=== PATIENT | female | born 1980 | race Caucasian/White ===

== ENCOUNTER 2023-04-14 10:44 | Inpatient (IN) | payer BC ==
[2023-04-14] MEDS ORDERED: Ephedrine Sulfate 50 MG/ML IV PRN (12:18)
[2023-04-14] MEDS ORDERED: Zofran 4 MG/2 ML VIAL IV PRN (12:18)
[2023-04-14] MEDS ORDERED: XYLOCAINE 1% HCL 20 ML MDV IJ PRN (12:18)
[2023-04-14] MEDS ORDERED: FENTANYL 2 MCG-BUPIV 0.125%-NS 250 ML Epidur 250 ML EPIDURAL SCH (12:30)
[2023-04-14] MEDS ORDERED: PITOCIN 30 UNITS/ LR 500 ML 30 UNITS/500 ML PLAST..BAG IV SCH (12:30)
[2023-04-14 12:42] LABS: Absolute Neutrophil Ct (ANC) 13.98 x10^3/uL (1.4-6.9); BASOPHIL % 0.2 % (0.0-0.4); Basophil (Absolute #) 0.03 x10^3/uL (0-0.4); Eosinophil % 0.1 % (0.00-5.0); Eosinophil (Absolute #) 0.02 x10^3/uL (0-0.5); Hematocrit 38.7 % (35-47); Hemoglobin 12.8 g/dL (12.0-16.0); IMMATURE GRAN # 0.07 x10^3u/L (0.00-0.03); IMMATURE GRAN % 0.4 % (0.00-0.4); Lymphocytes % 5.7 % (24.0-44.0); Mean Cell Volume 93.7 fL (78-100); Mean Corpuscular Hgb Concent. 33.1 g/dL (32-36); Mean Platelet Volume 9.6 fL (7.5-11.0); Monocyte (Absolute #) 0.68 x10^3/uL (0.0-1.3); Monocytes % 4.3 % (0.0-12.0); Neutrophil % 89.3 % (36.0-66.0); Platelet Count 246 x10^3/uL (150-450); Red Blood Count 4.13 x10^6/uL (4.1-5.4); Red Cell Distribution Width 13.9 % (11.5-14.0); White Blood Count 15.7 x10^3/uL (4.0-10.5)
[2023-04-14] MEDS: Lactated Ringers 1,000 ML IV ONE ×2 (12:56→14:38)
[2023-04-14 13:00] LABS: Amphetamine,Urine NEGATIVE (NEGATIVE); Barbiturate,Urine NEGATIVE (NEGATIVE); Benzodiazepine,Urine NEGATIVE (NEGATIVE); Cocaine,Urine NEGATIVE (NEGATIVE); Methadone,Urine NEGATIVE (NEGATIVE); Opiate,Urine NEGATIVE (NEGATIVE); PCP,Urine NEGATIVE (NEGATIVE); THC,Urine NEGATIVE (NEGATIVE)
[2023-04-14 13:18] LABS: ABO TYPING O; Antibody Screen NEGATIVE (NEGATIVE); RH TYPING POSITIVE
[2023-04-14] MEDS: Lactated Ringers 1,000 ML IV SCH ×2 (14:38→22:42)
[2023-04-15] MEDS ORDERED: LANSINOH 40 GM TOP PRN (02:37)
[2023-04-15] MEDS ORDERED: TUCKS TP PRN (02:37)
[2023-04-15] MEDS ORDERED: Dermoplast Spray TP PRN (02:37)
[2023-04-15] MEDS ORDERED: CORTISONE 1% CREAM TP PRN (02:37)
[2023-04-15 04:51] LABS: Absolute Neutrophil Ct (ANC) 16.45 x10^3/uL (1.4-6.9); BASOPHIL % 0.1 % (0.0-0.4); Basophil (Absolute #) 0.02 x10^3/uL (0-0.4); Eosinophil (Absolute #) 0 x10^3/uL (0-0.5); Hemoglobin 10.9 g/dL (12.0-16.0); IMMATURE GRAN # 0.09 x10^3u/L (0.00-0.03); IMMATURE GRAN % 0.5 % (0.00-0.4); Lymphocyte (Absolute #) 0.78 x10^3/uL (1.0-4.6); Lymphocytes % 4.3 % (24.0-44.0); Mean Cell Volume 93.5 fL (78-100); Mean Corpuscular Hemoglobin 30.9 pg (26-32); Mean Platelet Volume 9.8 fL (7.5-11.0); Monocyte (Absolute #) 0.88 x10^3/uL (0.0-1.3); Monocytes % 4.8 % (0.0-12.0); Neutrophil % 90.3 % (36.0-66.0); Platelet Count 222 x10^3/uL (150-450); Red Blood Count 3.53 x10^6/uL (4.1-5.4); Red Cell Distribution Width 14.3 % (11.5-14.0); White Blood Count 18.2 x10^3/uL (4.0-10.5)
[2023-04-15] MEDS: TYLENOL EXTRA STRENGTH 500 MG PO PRN (06:37)
[2023-04-15] MEDS: Docusate Sodium 100 MG PO SCH ×2 (10:41→21:15)
[2023-04-15] MEDS: FERREX 150 PO SCH (10:41)
[2023-04-15] MEDS ORDERED: Adacel Vial IM ONE (11:00)
[2023-04-15] MEDS: MOTRIN 400 MG PO PRN ×2 (14:33→21:15)
[2023-04-16] MEDS: TYLENOL EXTRA STRENGTH 500 MG PO PRN ×2 (06:19→20:38)
--- NOTE | 2023-04-16 07:19 | PCM.NOTE ---
Date and Time: 04/16/23717 Subjective Assessment: ppd 1 sp pt resting in bed and doing well able to ambulate and tolerate diet. vss afebrile abd; soft uterus; firm lochia; mild hgb; 10 a/p sp ppd1 anticipate discharge home tomorrow should fu in office in 3 wks OBJECTIVE DATA Vital Signs: Vital Signs - 24 hr Temp Pulse Resp BP Pulse Ox 04/16/23 02:00 98.4 F 89 17 100/63 97 04/15/23 20:30 98.4 F 93 H 17 128/60 97 04/15/23 14:35 97.9 F 105 H 16 103/69 96 04/15/23 08:13 98.2 F 74 16 112/59 97 Pain Assessment - Last Documented Pain Intensity [Medial] 0 Pain Intensity 2 Pain Scale Used 0-10 Pain Scale Intake and Output: Intake & Output 04/13/23 04/14/23 04/15/23 04/16/23 11:59 11:59 11:59 11:59 Intake Total 1000 2080 Output Total 700 Balance 300 2080 Weight 66.678 kg Assessment/Plan (1) Vaginal delivery Current Visit: Yes Status: Acute Code(s): O80 - ENCOUNTER FOR FULL-TERM UNCOMPLICATED DELIVERY
--- NOTE | 2023-04-16 07:22 | PCM.DS ---
Discharge Summary Date of Admission: 04/14/23 10:44 Admitting Physician: MYAH MARTINEZ Consults: Consults on Case 04/14/23 12:19 Notify Anesthesia Provider PRN Primary Care Provider: STEPHEN BERG Allergies Allergies No Known Drug Allergies Allergy (Unverified 04/14/23 12:55) Hospital Summary - Hospital Course Hospital Course: pt admitted on april 14 at 37 3/7 wks gestation with spontaneous rupture of membrane and was subsequently started on pitocin and received epidural and subsequently delivered live baby girl via without complicaiton on april 15. during period was stable able to ambulate and tolerate diet and had a stable hgb level at 10. pt at this time stable for discharge on april 17 and was advised to fu in office in 3 wks for care. all questions answered to her satisfaction. - Vitals & Intake/Output Vital Signs: Vital Signs Temperature 98.4 F 04/16/23 02:00 Pulse Rate 89 04/16/23 02:00 Respiratory Rate 17 04/16/23 02:00 Blood Pressure 100/63 04/16/23 02:00 O2 Sat by Pulse Oximetry 97 04/16/23 02:00 Intake & Output: Intake & Output 04/13/23 04/14/23 04/15/23 04/16/23 11:59 11:59 11:59 11:59 Intake Total 1000 2080 Output Total 700 Balance 300 2080 Weight 66.678 kg - Lab Result Diagrams: 04/15/23 04:40 Micro Results-Entire Visit: Microbiology 04/14/23 00:50 Urine Culture - Final Catherized NO GROWTH Final Diagnosis/Problem List - Final Discharge Diagnosis/Problem (1) Vaginal delivery Current Visit: Yes Status: Acute Code(s): O80 - ENCOUNTER FOR FULL-TERM UNCOMPLICATED DELIVERY - Discharge Disposition: Home, Self-Care Condition: Stable Prescriptions: No Action Vit No.179/Iron/Folic [ Tablet] 1 each PO DAILY Simethicone [Gas-X] 125 mg PO QID PRN Docusate Sodium [Colace] 100 mg PO BID PRN Calcium Carbonate [Tums] 200 mg PO DAILY PRN PRN PRN Reason: Gas Or Belching Acyclovir 200 mg Cap [Acyclovir] 400 mg PO DAILY Follow up with: STEPHEN BERG MD [Primary Care Provider] - LOUIS GONZALES DO [ACTIVE STAFF] -
[2023-04-16 07:49] LABS: Hematocrit 29.5 % (35-47); Hemoglobin 9.6 g/dL (12.0-16.0); Mean Cell Volume 95.5 fL (78-100); Mean Corpuscular Hemoglobin 31.1 pg (26-32); Mean Corpuscular Hgb Concent. 32.5 g/dL (32-36); Mean Platelet Volume 9.5 fL (7.5-11.0); Platelet Count 201 x10^3/uL (150-450); Red Blood Count 3.09 x10^6/uL (4.1-5.4); Red Cell Distribution Width 14.4 % (11.5-14.0); White Blood Count 10.3 x10^3/uL (4.0-10.5)
[2023-04-16] MEDS: FERREX 150 PO SCH (13:11)
[2023-04-16] MEDS: Docusate Sodium 100 MG PO SCH (13:15)
[2023-04-16] MEDS: MOTRIN 400 MG PO PRN (13:16)
[2023-04-16 20:54] VITALS: RESP 16
[2023-04-17] MEDS: Docusate Sodium 100 MG PO SCH ×2 (01:50→10:09)
[2023-04-17] MEDS: MOTRIN 400 MG PO PRN (03:11)
[2023-04-17 04:57] VITALS: BP 119/79; PULSE 79; TEMP 98.6; O2SAT 99
[2023-04-17] MEDS: TYLENOL EXTRA STRENGTH 500 MG PO PRN (10:09)
== END 2023-04-17 15:15 | disposition home or self-care (01) | DRG 807 ==
LOC: OB 10:44
PROVIDERS: ADMIT Family Medicine; ATTEND Family Medicine
PROC: 10E0XZZ Delivery of Products of Conception, External Approach (ICD-10-PCS; principal; 2023-04-14)
PROC: 0KQM0ZZ Repair Perineum Muscle, Open Approach (ICD-10-PCS; 2023-04-14)
DX: O70.1 Second degree perineal laceration during delivery (principal); Z37.0 Single live birth; Z3A.37 37 weeks gestation of pregnancy; Z20.828 Contact with and (suspected) exposure to other viral communicable diseases
CPT/HCPCS: 36415; 59409; 80307; 84112; 85025; 85027; 86850; 86900; 86901; 87086; 90471; 90715; J2405; J2590; A9270-GY

== ENCOUNTER 2024-09-19 14:01 | Emergency (ER) | payer BC ==
[2024-09-19 15:27] VITALS: TEMP 97.5
[2024-09-19] MEDS ORDERED: TYLENOL 325 MG ONE (15:32)
--- NOTE | 2024-09-19 15:32 | ERPHSYRPT ---
- History of Present Illness Time Seen by Provider: 09/19/24 15:32 Source: patient Exam Limitations: no limitations Patient Subjective Stated Complaint: Pt states "I Slipped on my deck and fell backwards and hit the back of my head and my head, neck and back hurt." Triage Nursing Assessment: Pt presented alert and oriented X 3, skin pwd pt ambulates with an upright steady gait, able to speak in clear full sentences. PT resting comfortably on the bed. a pediatric c collar was placed on pt to remind her not to move her head. Physician History: The patient presents with head and body pain after a fall. The patient experienced a fall while taking their dog outside, slipping on the fourth step and landing on their back. The fall was described as a backward motion, and they did not lose consciousness, although they lay on the ground momentarily before getting up. Since the fall, they have experienced pain in their head, eyes, fingers, and thumbs, which began immediately after the incident. They have only managed four hours of sleep since the fall and have taken Tylenol for pain relief. They have a [id number] child, which may impact their ability to rest and recover fully. No loss of consciousness during the fall. No vomiting, weakness on one side, or trouble with speech since the incident. Occurred: just prior to arrival Reason for Fall: slipped Injuries/Pain Location: head, neck, back, upper Loss of Consciousness: no loss of consciousness Quality: throbbing Severity of Pain-Max: moderate Severity of Pain-Current: moderate Modifying Factors: Improves With: immobilization. Worsens With: movement Associated Symptoms (Fall): back pain, headache, nausea, neck pain, No extremity injury, No shortness of breath, No slurred speech, No vomiting Allergies/Adverse Reactions: No Known Drug Allergies Allergy (Unverified 04/14/23 12:55) Home Medications: Acyclovir 200 mg Cap [Acyclovir] 400 mg PO DAILY 04/14/23 [History] Hx Tetanus, Diphtheria Vaccination/Date Given: No Hx Influenza Vaccination/Date Given: No Hx Pneumococcal Vaccination/Date Given: No Immunizations Up to Date: No Travel Risk - International Travel Have you traveled outside of the country in past 3 weeks: No - Emerging Infectious Disease Are you exhibiting symptoms associated with any current EIDs: No - Review of Systems All Other Systems: Reviewed and Negative - Past Medical History Pertinent Past Medical History: No Other Medical History: Hx genital herpes - currently on acyclovir - Past Surgical History Past Surgical History: Yes Other Surgical History: hernia surgery at 2 months old. HV - Female History Hx Last Menstrual Period: 09/12/2024 Hx Now: No - Social History Smoking Status: Never smoker Exposure to second hand smoke: Yes Drug Use: none - Social Determinants of Health Will the patient participate in the screening: Declined to provide - Nursing Vital Signs Nursing Vital Signs: Initial Vital Signs Temperature 97.5 F 09/19/24 15:20 Pulse Rate 66 09/19/24 15:20 Respiratory Rate 20 09/19/24 15:20 Blood Pressure 119/81 09/19/24 15:20 O2 Sat by Pulse Oximetry 100 09/19/24 15:20 Pain Scale Pain Intensity 0 - Obed Coma Score Best Eye Response ([place]): (4) open spontaneously Best Verbal Response ([place]): (5) oriented Best Motor Response ([place]bed): (6) obeys commands [place] Total: 15 - Physical Exam General Appearance: no apparent distress Head Injury: no evidence of injury, tenderness Eye Exam: PERRL/EOMI, eyes nml inspection ENT Exam: airway nml, nml ext.inspection Neck Exam: supple, normal alignment, limited range of motion, muscle spasm, paraspinous muscle tender, No focal neuro deficit Respiratory/Chest Exam: No respiratory distress Back Exam: normal inspection, muscle spasm, No vertebral tenderness Neurologic Exam: alert, oriented x 3, cooperative, wool sacker II-XII nml as tested, normal mood/affect, nml cerebellar function, nml station & gait Skin Exam: normal color, warm, dry, No rash SpO2 Interpretation: normal SpO2: 100 O2 Delivery: Room Air - CT Exams Head CT Interpretation: Negative, Tele-radiologist Report Cervical Spine CT Interpretation: Negative, Tele-radiologist Report Thoracic Spine CT Interpretation: Negative, Tele-radiologist Report Ordered Tests: Active Orders 24 hr Category Date Time Status CERVICAL SPINE WO CONTRAST [CT] Stat Exams 09/19/24 15:30 Completed HEAD WITHOUT CONTRAST [CT] Stat Exams 09/19/24 15:30 Completed THORACIC SPINE W/O CONTRAST [CT] Stat Exams 09/19/24 15:30 Completed Medication Summary Discontinued Medications Generic Name Dose Route Start Last Admin Trade Name Freq PRN Reason Stop Dose Admin Acetaminophen 975 mg 09/19/24 15:31 09/19/24 15:33 Acetaminophen 325 Mg Tablet PO 09/19/24 15:32 975 mg STAT STA Administration Acetaminophen Confirm 09/19/24 15:32 Acetaminophen 325 Mg Tablet Administered 09/19/24 15:33 Dose 975 mg .ROUTE .STK-MED ONE - Progress Progress: improved Progress Note: The patient presents after a same level fall without LOC or reported head injury. The history of the fall indicates it was mechanical and not due to syncope/pre-syncope and there were no preceding symptoms. The patient is not on any blood thinners. It does seem likely there is a possibility of head, cspine or tspine injury so CTs will also be ordered. If necessary, additional testing, medication will be ordered. CT neg for acute injury, return precautions given. Recommend Tylenol only for 2 days. Counseled pt/family regarding: diagnosis, need for follow-up, rad results Medical Desision Making - Diagnostic Testing Diagnostic test were ordered, analyzed, and reviewed by me: Yes Radiological Interpretation: Reviewed by me, Teleradiologist Report - Risk of complications Low Risk: Low risk of morbidity from additional dx testing or treatment - Departure Departure Disposition: Home Clinical Impression: Fall, Post-traumatic headache, Neck pain Condition: Good Critical Care Time: No Referrals: STEPHEN BERG MD [Primary Care Provider] - Follow up/PCP as directed Instructions: Contusion (DC), Preventing falls in adults Forms: Work/School Release Form
[2024-09-19] MEDS: TYLENOL 325 MG PO STA (15:33)
[2024-09-19 16:25] VITALS: RESP 18
--- NOTE | 2024-09-19 16:39 | XRAY ---
CLINICAL HISTORY: pain, fall COMPARISON: No prior available. TECHNIQUE: Axial non-contrast CT scan of the brain was performed from the skull base to the high parietal region. One of the following dose reduction techniques was utilized for this exam: Automated exposure control, adjustment of the mA and/or kV according to patient size, use of iterative reconstruction. FINDINGS: Brain Parenchyma: Normal attenuation of the cerebral hemispheres, cerebellum, and brainstem. No evidence of acute infarct, hemorrhage, or mass effect. No abnormal areas of hypo- or hyperattenuation. Ventricular System: Ventricles are normal in size and configuration. No evidence of hydrocephalus or ventricular enlargement. Subarachnoid Spaces: Normal sulci and cisterns. No evidence of subarachnoid hemorrhage or extra-axial fluid collections. Cerebellum and Brainstem: Normal size and signal. No masses, lesions, or areas of abnormal signal. Orbits: Normal appearance of the globes, optic nerves, and extraocular muscles. No evidence of orbital masses or abnormal signal. Sinuses: Clear paranasal sinuses. No evidence of sinusitis or mucosal thickening. Mastoid Air Cells: Clear mastoid air cells. No evidence of mastoiditis. Right maxillary sinus retention cyst. Skull: Normal skull morphology. IMPRESSION: No trauma related findings are noted No acute abnormalities. Electronically Signed by: Russ Orozco MD. (09/19/2024 16:34:33 EST)
--- NOTE | 2024-09-19 16:49 | XRAY ---
CLINICAL HISTORY: pain, fall COMPARISON: None. TECHNIQUE: Multiple axial images of CT thoracic spine without contrast was submitted in bone and soft tissue window. One of the following dose reduction techniques were utilized for this exam: Automated exposure control, adjustment of the mA and/or kV according to patient size, and use of iterative reconstruction. FINDINGS: Vertebrae: Normal alignment of the thoracic vertebrae. Mild osteophytes are noted No fractures, lytic or sclerotic lesions. Normal bone density without evidence of osteopenia or osteoporosis. Intervertebral Discs: Normal height and signal intensity of the intervertebral discs. No evidence of disc herniation, bulging, or significant degeneration. Spinal Canal and Neural Foramina: Spinal canal is of normal caliber with no evidence of spinal stenosis. Neural foramina are patent bilaterally at all levels. No evidence of nerve root compression. Facet Joints: Normal appearance of the facet joints. No evidence of facet arthropathy or significant degenerative changes. Soft Tissues: Normal appearance of the paraspinal soft tissues. No abnormal masses, fluid collections, or signs of inflammation. IMPRESSION: No trauma-related injury is noted in the visualized thoracic spine. Mild degenerative changes are noted Please correlate clinically. Electronically Signed by: Russ Orozco MD. (09/19/2024 16:44:50 EST)
--- NOTE | 2024-09-19 16:55 | XRAY ---
CLINICAL HISTORY: pain, fall COMPARISON: None available. TECHNIQUE: A CT scan of the cervical spine was performed without the administration of intravenous contrast. Contiguous axial images were obtained from the skull base to the upper thoracic spine. Coronal and sagittal reformatted images were also reviewed. One of the following dose-reduction techniques was utilized for this exam. Automated exposure control, adjustment of the mA and/or kV according to patient size, and use of iterative reconstruction. FINDINGS: Vertebrae: The vertebral bodies are normal in height. Straightening of the curvature due to muscle spasm. No evidence of acute fracture or dislocation. The cortical and trabecular bone patterns are normal. No signs of lytic or sclerotic lesions. Normal configuration of the posterior elements. Intervertebral Discs: The intervertebral disc spaces are preserved. Facet Joints: The facet joints are normal without evidence of dislocation, subluxation, or significant degenerative changes. Neural Foramina: The neural foramina is patent bilaterally at all levels. No evidence of foraminal narrowing or nerve root compression. Prevertebral Soft Tissues: The prevertebral soft tissues are normal in thickness without evidence of mass or abnormal fluid collection. Additional Findings: No other significant findings are noted in the visualized soft tissue structures or bony elements. IMPRESSION: 1. No fractures or dislocations. 2. No trauma-related injury is noted. Electronically Signed by: Russ Orozco MD. (09/19/2024 16:52:15 EST)
[2024-09-19 17:04] VITALS: BP 92/80; PULSE 52
[2024-09-19 21:19] VITALS: O2SAT 100
== END 2024-09-19 17:16 | disposition home or self-care (01) ==
LOC: ED 14:01
DX: G44.309 Post-traumatic headache, unspecified, not intractable (principal); M54.2 Cervicalgia; M54.9 Dorsalgia, unspecified; W01.198A Fall on same level from slipping, tripping and stumbling with subsequent striking against other object, initial encounter
CPT/HCPCS: 70450; 72125; 72128; 99284; A9270-GY